=== PATIENT | male | born 1950 | race Caucasian/White ===

== ENCOUNTER 2017-04-02 17:25 | Inpatient (IN) | payer OTHER ==
[2017-04-02] MEDS ORDERED: NS 1,000 ML IV ONE (17:53)
--- NOTE | 2017-04-02 17:54 | EDPHY ---
H & P Stated Complaint: bradycardia/slurring words - Personal History Current Tetanus/Diphtheria Vaccine: Yes - Medical/Surgical History Hx Asthma: No Hx Chronic Respiratory Disease: No Hx Diabetes: No Hx Cardiac Disease: No Hx Renal Disease: No Hx Cirrhosis: No Hx Alcoholism: No Hx HIV/AIDS: No Hx Splenectomy or Spleen Trauma: No Other PMH: denies - Social History Smoking Status: Current every day smoker Constitutional: Initial Vital Signs Heart Rate 24 L 04/02/17 17:36 Respiratory Rate 16 04/02/17 17:36 Blood Pressure 122/78 H 04/02/17 17:36 O2 Sat (%) 98 04/02/17 17:36 O2 Delivery Mode Nasal Cannula O2 (L/minute) 2 Allergies/Adverse Reactions: No Known Allergies Allergy (Verified 04/02/17 17:36) Home Medications: Medication Instructions Recorded NK [No Known Home Meds] 04/02/17 Medical Decision Making ED Course/Re-evaluation: CHIEF COMPLAINT: Vertigo, slurred speech HISTORY OF PRESENT ILLNESS: This patient is a healthy 66 y/o male arriving with family presenting following an episode of vertigo, headache, and slurred speech. Earlier today, he was riding his bike, and developed a strange sensation in his ear. He began to feel unstable and lose his balance, so he stopped riding and walked his bike to a place where a family member could pick him up. When he called his family member , she states it sounded like he was slurring his words. He felt nauseous, but vomited prior to arrival and feels better. Currently, his symptoms are mostly resolved. He was very bradycardic at triage at around 30bpm. He denies headache , chest pain, shortness of breath, abdominal pain, or other associated symptoms. He denies history of cardiac disease. No hypertension or hyperlipidemia. REVIEW OF SYSTEMS: A 10 point review of systems was performed and is negative with the exception of the elements mentioned in the history of present illness. PHYSICAL EXAM: General Appearance: Alert, well hydrated, appropriate, and non-toxic appearing. Head: Atraumatic without scalp tenderness or obvious injury Eyes: Pupils equal, round, reactive to light and accommodation, EOMI, no trauma , no injection. Ears: Clear bilaterally, no perforation, normal landmarks Nose: Atraumatic, no rhinorrhea, clear. Throat: There is no erythema or exudates, no lesions, normal tonsils, mucus membranes moist. Neck: Supple, 2+ carotid upstroke, non-tender, no lymphadenopathy. Respiratory: No retractions, no distress, no wheezes, and no accessory muscle use. Lungs are clear to auscultation bilaterally. Cardiovascular: Bradycardic, no murmurs, rubs, or gallops. Bilateral carotid, radial, dorsalis pedis, and posterior tibial pulses intact. Good capillary refill all extremities. Gastrointestinal: Abdomen is soft, non-tender, non-distended, no masses, no rebound, no guarding, no peritoneal signs. Musculoskeletal: Normal active ROM of all extremities, atraumatic. Neurological: Alert, appropriate, and interactive. The patient has normal DTRs and non-focal cranial nerves, motor, sensory, and cerebellar exam. Skin: No rashes, good turgor, no nodules on palpation. PAST MEDICAL HISTORY: Denies PAST SURGICAL HISTORY: Noncontributory SOCIAL HISTORY: . Family at bedside. Lives in [place]. PCP Dr. Delgado DIAGNOSTICS/PROCEDURES/CRITICAL CARE TIME: The 12 lead EKG was interpreted by myself. See hard copy and/or "tracemaster" electronic copy for interpretation. Sinus bradycardia, occasional ventricular escape beats. DIFFERENTIAL DIAGNOSIS: The differential diagnosis for the patient's dizziness included but was not limited to peripheral and central causes of vertigo, orthostatic causes including dehydration, cardiogenic and neurogenic causes, and blood loss. Differential diagnosis for the patient's bradycardia includes but is not limited to sick sinus syndrome, medication side effect, acute myocardial infarction, vasovagal response, increased intracranial pressure. MEDICAL DECISION MAKIN:45 Assessed patient on arrival. He is bradycardic, heart rate 36 bpm. He will be transferred to a trauma bay for acute care options. Pacer pads placed. The patient is feeling well at this time, and his dizziness is resolved. He is speaking normally. He is alert, neurologically intact. Exam unremarkable other than his bradycardia. Vitals otherwise stable, BP 122/78, RR 24. Plan for labs including CBC, BMP, Troponin, BNP, D-Dimer, PTPTT, an Magnesium. 17:[address] Caceres, senior cyber security analyst. He will evaluate the patient. IV established. Administered 1L IV NS. Plan to administer 1mg IV Atropine for heart rate increase. 18:06 Following Atropine administration, heart rate has increased to 61, sinus rhythm. 18:40 Dr. Caceres will admit the patient for near syncope and bradycardia and perform further cardiac workup. - Data Points Laboratory Results: Laboratory Results 04/02/17 17:40 04/02/17 17:40 04/02/17 04/02/17 04/02/17 17:50 17:40 17:40 WBC RBC Hgb Hct MCV MCH MCHC RDW Plt Count MPV Neut % (Auto) Lymph % (Auto) Desha % (Auto) Eos % (Auto) Baso % (Auto) Nucleat RBC Rel Count Absolute Neuts (auto) Absolute Lymphs (auto) Absolute Monos (auto) Absolute Eos (auto) Absolute Basos (auto) Absolute Nucleated RBC Immature Gran % Immature Gran # PT 13.2 SEC SEC (12.0-15.0) INR 1.01 (0.83-1.16) APTT 24.8 SEC SEC (23.0-38.0) D-Dimer 0.29 ug/mLFEU ug/mLFEU (0.00-0.50) Sodium 138 mEq/L mEq/L (134-144) Potassium 4.0 mEq/L mEq/L (3.5-5.2) Chloride 101 mEq/L mEq/L (97-110) Carbon Dioxide 24 mEq/l mEq/l (22-31) Anion Gap 13 mEq/L mEq/L (8-16) BUN 17 mg/dL mg/dL (7-23) Creatinine 0.9 mg/dL mg/dL (0.7-1.3) Estimated GFR > 60 Glucose 101 mg/dL H mg/dL (70-100) Calcium 9.7 mg/dL mg/dL (8.5-10.4) Magnesium 2.0 mg/dL mg/dL (1.6-2.3) CK-MB (CK-2) Fraction 2.31 ng/mL ng/mL (0.00-3.19) Troponin I Cancelled < 0.012 ng/mL ng/mL (0.000-0.034) NT-Pro-B Natriuret Pep 800 pg/mL H pg/mL (0-125) 04/02/17 17:40 WBC 5.80 10^3/uL 10^3/uL (3.80-9.50) RBC 4.78 10^6/uL 10^6/uL (4.40-6.38) Hgb 15.6 g/dL g/dL (13.7-17.5) Hct 44.0 % % (40.0-51.0) MCV 92.1 fL fL (81.5-99.8) MCH 32.6 pg pg (27.9-34.1) MCHC 35.5 g/dL g/dL (32.4-36.7) RDW 12.4 % % (11.5-15.2) Plt Count 187 10^3/uL 10^3/uL (150-400) MPV 10.3 fL fL (8.7-11.7) Neut % (Auto) 58.5 % % (39.3-74.2) Lymph % (Auto) 31.2 % % (15.0-45.0) Desha % (Auto) 8.1 % % (4.5-13.0) Eos % (Auto) 1.0 % % (0.6-7.6) Baso % (Auto) 0.9 % % (0.3-1.7) Nucleat RBC Rel Count 0.0 % % (0.0-0.2) Absolute Neuts (auto) 3.39 10^3/uL 10^3/uL (1.70-6.50) Absolute Lymphs (auto) 1.81 10^3/uL 10^3/uL (1.00-3.00) Absolute Monos (auto) 0.47 10^3/uL 10^3/uL (0.30-0.80) Absolute Eos (auto) 0.06 10^3/uL 10^3/uL (0.03-0.40) Absolute Basos (auto) 0.05 10^3/uL 10^3/uL (0.02-0.10) Absolute Nucleated RBC 0.00 10^3/uL 10^3/uL (0-0.01) Immature Gran % 0.3 % % (0.0-1.1) Immature Gran # 0.02 10^3/uL 10^3/uL (0.00-0.10) PT INR APTT D-Dimer Sodium Potassium Chloride Carbon Dioxide Anion Gap BUN Creatinine Estimated GFR Glucose Calcium Magnesium CK-MB (CK-2) Fraction Troponin I NT-Pro-B Natriuret Pep Medications Given: Discontinued Medications Atropine Sulfate (Atropine 1 Mg/10 Ml Syringe) 1 mg IVP EDNOW ONE Stop: 04/02/17 18:07 Last Admin: 04/02/17 18:09 Dose: 1 mg Sodium Chloride (Ns) 1,000 mls @ 0 mls/hr IV EDNOW ONE; Wide Open PRN Reason: Protocol Stop: 04/02/17 17:54 Last Admin: 04/02/17 18:05 Dose: 1,000 mls Departure - Departure Disposition: [facility] Inpatient Acute Clinical Impression: Near syncope, Bradycardia Condition: Good Report Scribed for: Urban Lange Report Scribed by: Hattie Larson Date of Report: 04/02/17 Time of Report: 17:49
--- NOTE | 2017-04-02 17:55 | CPEKG ---
Heart Rate: 62 RR Interval: 968 P-R Interval: 176 QRSD Interval: 108 QT Interval: 352 QTC Interval: 358 P [place]: 83 QRS [place]: -18 T Wave [place]: -83 EKG Severity - ABNORMAL ECG - EKG Impression: SINUS RHYTHM EKG Impression: VENTRICULAR BIGEMINY EKG Impression: NONSPECIFIC T ABNORMALITIES, DIFFUSE LEADS Electronically Signed By: Urban Lange 02-Apr-2017 20:23:32
[2017-04-02] MEDS ORDERED: ATROPINE SULFATE 1 MG/10 ML SYR ONE (18:03)
[2017-04-02] MEDS ORDERED: ATROPINE SULFATE 1 MG/10 ML SYR IVP ONE (18:06)
[2017-04-02 18:13] LABS: % IMMATURE GRANULYOCYTES 0.3 % (0.0-1.1); ABSOLUTE IMMATURE GRANULOCYTES 0.02 10^3/uL (0.00-0.10); ADD DIFF? NO; ADD MORPH? NO; ADD SCAN? NO; ATYPICAL LYMPHOCYTE FLAG 10 (0-99); FRAGMENT RBC FLAG 0 (0-99); HEMOGLOBIN 15.6 g/dL (13.7-17.5); LEFT SHIFT FLG 0 (0-99); LIPEMIA HEMOLYSIS FLAG 90 (0-99); MEAN CELL HEMOGLOBIN 32.6 pg (27.9-34.1); MEAN CELL HEMOGLOBIN CONCENTR. 35.5 g/dL (32.4-36.7); MEAN CELL VOLUME 92.1 fL (81.5-99.8); MEAN PLATELET VOLUME 10.3 fL (8.7-11.7); PLATELET CLUMPS FLAG 0 (0-99); PLATELET COUNT 187 10^3/uL (150-400); RED BLOOD CELL COUNT 4.78 10^6/uL (4.40-6.38); RED CELL DISTRIBUTION WIDTH 12.4 % (11.5-15.2)
[2017-04-02 18:22] LABS: INR 1.01 (0.83-1.16); PROTIME(PATIENT) 13.2 SEC (12.0-15.0)
[2017-04-02 18:23] LABS: APTT 24.8 SEC (23.0-38.0)
[2017-04-02 18:32] LABS: ANION GAP 13 mEq/L (8-16); CALCIUM 9.7 mg/dL (8.5-10.4); CARBON DIOXIDE 24 mEq/l (22-31); CHLORIDE 101 mEq/L (97-110); CREATININE 0.9 mg/dL (0.7-1.3); GLOMERULAR FILTRATION RATE > 60; GLUCOSE 101 mg/dL (70-100); SODIUM 138 mEq/L (134-144)
[2017-04-02 18:44] LABS: TROPONIN I < 0.012 ng/mL (0.000-0.034)
[2017-04-02] MEDS ORDERED: NS 1,000 ML IV SCH (19:30)
[2017-04-02] MEDS ORDERED: ACETAMINOPHEN 325 MG TAB PO PRN (19:36)
[2017-04-02] MEDS ORDERED: GADOBUTROL 10 ML VIAL IVP ONE (20:07)
--- NOTE | 2017-04-02 22:15 | GCON ---
[f rep st] CONSULTATION DATE OF CONSULTATION: 04/02/2017 REASON FOR CONSULTATION: I was asked by Dr. Caceres to see this patient in regard to his acute stroke. HISTORY OF PRESENT ILLNESS: This is a 66-year-old man, who presented to the emergency department wit h bradycardia, heart rates in the 20s. 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 His heart rate is typically 35-45 when he is resting per his report . He was seen and admitted by Dr. Caceres from the emergency department. He received atropine with imp rovement of his heart rate up to the 50s to 60s. He had reported to Dr. Caceres, starting at 4:30 p.m. he had some mild problems forming words as well as feeling slightly off balance and leaning to the le ft. Because of this, Dr. Caceres ordered an MRI of his brain. The report of the MRI of the brain was c alled to Dr. Caceres with an acute left-sided cerebellar infarct. Dr. Caceres called me just after 9:00 p. m. with this information. I called a stroke alert and went up to see him. He repeated a similar his tory to me. PAST MEDICAL/SURGICAL HISTORY: None. MEDICATIONS: None. ALLERGIES: No known drug allergies. FAMILY HISTORY: No stroke. SOCIAL HISTORY: Does not drink or smoke. 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 REVIEW OF SYSTEMS: A 10-point review of systems is conducted and is negative except per HPI. PHYSICAL EXAM: VITAL SIGNS: Blood pressure 125/68, heart rate 57, respiration rate 16, saturating 9 4% on room air. Temperature is 36.7. GENERAL: The patient is a very pleasant man who is resting co mfortably, in no acute distress. HEENT: Shows him to be normocephalic atraumatic. CARDIOVASCULAR: Shows a regular rate and rhythm. No murmurs, rubs, or gallops. PULMONARY: Lungs clear to ausculta tion bilaterally. ABDOMEN: Soft, nontender, nondistended. SKIN: No rash. : Shows no Harrell. N EUROLOGIC: Shows him to be alert and oriented x3. Cranial nerves 2-12 are intact. He has some mild dysarthria. Motor is intact and symmetric in the upper and lower extremities. Sensation to light t ouch is intact in the upper and lower extremities. He has diminished left-sided cerebellar findings including finger tapping, egspyg-wb-baxy and sakk-[id number]-[id number] compared to his right. PSYCHIATRIC: Shows normal mood and affect. LABS: CBC is normal. INR is normal. BNP is 800. Troponin is negative. Glucose is 101. DATA: 1. I discussed this with Dr. Caceres as above. 2. I personally viewed and interpreted his EKG. This shows ventricular bigeminy. There are no acut e ischemic changes. 3. I spoke with neurologist Dr. Hernández on the phone. IMPRESSION AND PLAN: 1. Acute cerebrovascular accident: Unfortunately he was out of the window by the time his stroke wa s truly discovered. He does have mild findings. Had an NIH stroke score of 0. I did discuss this w ith Dr. Hernández, who agreed that there was no indication for tPA given the time frame. He will be nenita ated with aspirin. Lipids will be checked. CT angio of his head and neck will be checked. Echocard iogram will be checked. He will be monitored on telemetry and seen by Neurology tomorrow. 2. Bradycardia: I wonder if a central neurologic issues did not triggered this episode of bradycard ia. It sounds as though given his level of fitness that he is relatively bradycardic at baseline. H e is improved with atropine. He will be followed by Dr. Caceres for this. /[id number]/MODL
[2017-04-02] MEDS ORDERED: IOPAMIDOL (ISOVUE 370) 100 ML BTL IV ONE (22:16)
[2017-04-02 23:43] LABS: CREATINE KINASE-MB FRACTION 1.27 ng/mL (0.00-3.19); TROPONIN I 0.013 ng/mL (0.000-0.034)
[2017-04-03 02:16] LABS: CREATINE KINASE-MB FRACTION 1.22 ng/mL (0.00-3.19); TROPONIN I 0.017 ng/mL (0.000-0.034)
[2017-04-03 04:51] LABS: % IMMATURE GRANULYOCYTES 0.3 % (0.0-1.1); ABSOLUTE IMMATURE GRANULOCYTES 0.02 10^3/uL (0.00-0.10); ADD DIFF? NO; ADD MORPH? NO; ADD SCAN? NO; ATYPICAL LYMPHOCYTE FLAG 0 (0-99); FRAGMENT RBC FLAG 0 (0-99); HEMATOCRIT 39.8 % (40.0-51.0); HEMOGLOBIN 14.4 g/dL (13.7-17.5); LEFT SHIFT FLG 0 (0-99); LIPEMIA HEMOLYSIS FLAG 90 (0-99); MEAN CELL HEMOGLOBIN 32.8 pg (27.9-34.1); MEAN CELL HEMOGLOBIN CONCENTR. 36.2 g/dL (32.4-36.7); MEAN CELL VOLUME 90.7 fL (81.5-99.8); PLATELET CLUMPS FLAG 0 (0-99); PLATELET COUNT 176 10^3/uL (150-400); RED BLOOD CELL COUNT 4.39 10^6/uL (4.40-6.38); RED CELL DISTRIBUTION WIDTH 12.5 % (11.5-15.2)
[2017-04-03 05:02] LABS: ALANINE AMINOTRANSFERASE 34 IU/L (21-72); ALBUMIN 3.4 g/dL (3.5-5.0); ALKALINE PHOSPHATASE 58 IU/L (38-126); ANION GAP 9 mEq/L (8-16); ASPARTATE AMINOTRANSFERASE 19 IU/L (17-59); BILIRUBIN,TOTAL 0.8 mg/dL (0.1-1.4); CARBON DIOXIDE 23 mEq/l (22-31); CHLORIDE 108 mEq/L (97-110); CHOLESTEROL 118 mg/dL (140-220); CHOLESTEROL/HDL RATIO 2.46 RATIO (1.00-4.97); CREATININE 0.9 mg/dL (0.7-1.3); GLOMERULAR FILTRATION RATE > 60; GLUCOSE 92 mg/dL (70-100); HIGH DENSITY LIPOPROTEIN 48 mg/dL (40-65); LDL/HDL RATIO 1.23 RATIO (1.00-3.64); LOW DENSITY LIPOPROTEIN 59 mg/dL (80-100); NON-HIGH DENSITY LIPOPROTEIN 70 mg/dL (90-129); POTASSIUM 4.2 mEq/L (3.5-5.2); SODIUM 140 mEq/L (134-144); TOTAL PROTEIN 5.6 g/dL (6.3-8.2); TRIGLYCERIDE 57 mg/dL (40-150); VERY LOW DENSITY LIPOPROTEINS 11 mg/dL (8-25)
[2017-04-03 05:12] LABS: CREATINE KINASE-MB FRACTION 1.49 ng/mL (0.00-3.19); TROPONIN I 0.021 ng/mL (0.000-0.034)
--- NOTE | 2017-04-03 05:31 | GHP ---
[f rep st] HISTORY AND PHYSICAL DATE OF ADMISSION: 04/02/2017 REFERRING PHYSICIAN: Urban Lange MD INDICATION FOR ADMISSION: Symptomatic bradycardia. HISTORY OF PRESENT ILLNESS: The patient is a pleasant 66-year-old gentleman who is physically active with no significant past medical history, who was in his usual state of health until this afternoon when he was out on a bike ride with a friend of his. He states he was biking gradually down the [place] bike path when he had an acute onset of this sensation over his right inner ear which he describe d as a fullness and had a sudden onset of feeling a loss of equilibrium and dizziness which forced hi m to stop from his bike. He comments that he was listing to the left when trying to walk. He had sl urred speech and could not walk and he became profoundly nauseated and vomited x1 and felt better. Brendan musa was brought to [facility] by his biking naval architect where he was found to be in a sin us bradycardia in the 20s upon arrival. He was given IV fluid on a milligram of IV atropine which bauer s normalized his heart rate to sinus bradycardia ranging from approximately 45-65 beats per minute du ring my examination. Of note, during my exam he continues to have difficulty with speech. He responds appropriately. His neurologic exam is unremarkable with the exception of having difficulties with speech. He responds appropriately to questions. He has no past medical history of any significance. He is not on any medications. He states he has not been ill recently. He has been eating and drinking normally. 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 At the time of my exam, he denies complaints of dizziness, lightheadedness, near syncope, or syncope. He has no complaints of chest pain, chest pressure, nausea, vomiting, palpitations. He has no comp laints of PND, orthopnea, or lower extremity edema. He has no complaints of fevers, chills, sweats. He denies any recent viral illness. He has no complaints of abdominal pain, back pain, flank pain. No complaints of a tearing chest pain, midscapular pain, jaw pain. He has no neurologic symptoms. He denies focal numbness or weakness. He has no visual field loss. PAST MEDICAL HISTORY: None. PAST SURGICAL HISTORY: None. MEDICATIONS ON ADMISSION: None. ALLERGIES TO MEDICATIONS: None. FAMILY HISTORY: No family history of premature coronary artery disease or arrhythmias. He has siste rs who are alive and well with no cardiac issues. SOCIAL HISTORY: He grew up in [place], currently lives here in [place]. 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 He is . He is lifelong nonsmoker. He does not drink alcohol. He has not used illicit drugs. He has not used marijuana. He cycles 250 miles a week on his road bike and races competitively. PHYSICAL EXAMINATION: VITAL SIGNS: Blood pressure 147/85, heart rate is 50 and is sinus bradycardia , respiratory rate of 14, oxygen saturation 99% on 2 L nasal cannula. GENERAL: He is awake, alert, oriented, appropriate and responds to questions appropriately. NECK: There is no evidence of JVP or carotid bruits. LUNGS: Clear to auscultation bilaterally. CARDIAC: S1, S2. Regular rate and rhy thm. No murmurs, rubs, or gallops but marked bradycardia with an occasional premature beat. ABDOMEN : Soft, nontender, nondistended. There is no pulsatile mass or abdominal bruit. His abdomen has no rmal bowel sounds. EXTREMITIES: Distal pulses are intact. There is no evidence of cyanosis, clubbi ng or edema. NEUROLOGIC: Unremarkable. Cranial nerves are intact. No focal weakness or deficits. DATA: ECG on presentation today demonstrates sinus rhythm with ventricular bigeminy at a rate of 62 beats per minute. Normal intervals. Normal axis. Poor R-wave progression. Previous ECG from November 2009 demonstrates sinus bradycardia at 45 beats per minute. Please note resting heart rate is typica lly in the 40s for this patient. DATA: Labs: White blood cell count 5.8, hemoglobin 15.6, hematocrit of 44, platelets 187. Sodium 1 38, potassium 4.0, chloride 101, bicarb 24, BUN 17, creatinine 0.9, calcium 9.7, magnesium 2. Tropon in less than 0.012. N-terminal proBNP 800. Full telemetry demonstrates sinus bradycardia, currently with rates in the mid 40s to mid 50s with in termittent premature atrial contractions and premature ventricular contractions. IMPRESSION: 1. Symptomatic bradycardia on admission. 2. Onset triggered by fullness in right side of the head with listing to the left and ongoing diffic ulty with speech. 3. Known history of sinus bradycardia with resting heart rates typically in the 40s as noted on prev ious ECG From November 2009. PLAN: 1. MRI of the brain. 2. Complete 2D echocardiogram to be performed in the morning. 3. Serial cardiac enzymes x3. 4. Serial ECGs. 5. Admit to telemetry floor for close monitoring. 6. No indication for temporary or permanent pacemaker at this time. 7. Would recommend patient have pacer pads remain on throughout the course of the evening. 8. N.p.o. until further notice. Over an hour and a half were spent coordinating care for this patient. /[id number]/MODL
[2017-04-03 07:49] VITALS: O2SAT 95
[2017-04-03] MEDS ORDERED: ASPIRIN 81 MG CHEWABLE TAB PO SCH (09:00)
--- NOTE | 2017-04-03 09:11 | CPEKG ---
Heart Rate: 47 RR Interval: 1277 P-R Interval: 168 QRSD Interval: 108 QT Interval: 500 QTC Interval: 442 P [place]: 72 QRS [place]: -17 T Wave [place]: 70 EKG Severity - OTHERWISE NORMAL ECG - EKG Impression: SINUS BRADYCARDIA EKG Impression: MINIMAL ST ELEVATION, ANTERIOR LEADS EKG Impression: PRIOR ECG WITH VENTRICULAR BIGEMINY NOTED (ABSENT IN THIS ECG) Electronically Signed By: Jaleel Jimenez 07-Apr-2017 08:34:52
--- NOTE | 2017-04-03 10:48 | ECHO ---
[email or web address] [address] [address]: [phone] Fax: Transthoracic Echocardiogram Name: BELEN LACKEY MR#: [id number] Study Date: 04/03/2017 Study Time: 08:32 AM Date of : 1950 Age: 66 year(s) Height: 188 cm (74 in.) Weight: 78.93 kg (174 lb.) BSA: 2.05 m2 Gender: Male Examination: Echo Indication: marked bradycardia Image Quality: Adequate Contrast: Requested by: Phillip Caceres BP: 134 mmHg/85 mmHg Heart Rate: Rhythm: Sinus bradycardia Indication: marked bradycardia Procedure Staff Distribution Tech: Yaquelin Treviño Physician: [facility] [place] Requesting Provider: Conclusions: Cardiomegaly with mild to moderately reduced LV systolic function. Ejection fraction 40%. Global hypokinesis. Functional moderate mitral regurgitation. Mild aortic and tricuspid regurgitation. Definity to assess left ventricular apex. Measurements: Chambers Valvular Assessment AV/MV Valvular Assessment TV/PV Normal Normal Normal Name Value Range Name Value Range Name Value Range Ao Ximena (MM): 3.1 cm (2.2 cm-3.7 AV Vmax: 1.42 m/s (1 m/s-1.7 TR Vmax: 2.38 mm/s ( - ) cm) m/s) TR PGmax: 23 mmHg ( - ) IVSd (2D): 1.0 cm (0.6 cm-1.1 AV maxP mmHg ( - ) syst. PAP: 33 mmHg ( - ) cm) MV meanP mmHg ( - ) PV Vmax: 0.63 m/s (0.6 m/s-0.9 LVDd (2D): 6.7 cm (4.2 cm-5.9 MVA (Vmax): 4.2 m/s ( - ) m/s) cm) PV PGmax: 2 mmHg ( - ) LVDs (2D): 5.8 cm (2.1 cm-4 cm) LVPWd (2D): 1.0 cm (0.6 cm-1 cm) LVOTd 2.1 cm 2.1 cm mm LVEF (BP): 38 % (>=55 %) RVDd(2D): 4.5 cm (1.9 cm-3.8 cmmm) Continued Measurements: Chambers Valvular Assessment AV/MV Valvular Assessment TV/PV Name Value Name Value Name Value LADs: 5.2 cm MV Annulus: 4.4 cm CVP (est.): 10 mmHg LADs Lon.5 cm MV VTI: 17.50 cm LA Area: 32.5 cm2 MR Vena Contracta: 0.5 cm Patient: BELEN LACKEY Study Date: 04/03/2017 Page 1 of 2 08:32 AM LA Volume: 132 ml MR ERO: 0.2 cm2 LA Volume Index: 64.4 ml/m2 MR PISA radius: 6 mm TAPSE: 1.8 cm MR Reg. Volume: 36 ml RA Area: 23.2 cm2 MR Reg. Fraction: 14 % Additional Vessels Name Value Ao Ascendin.3 cm Findings: Left Ventricle: Dilated left ventricle. Borderline concentric LV hypertrophy. Mildly to moderately reduced systolic funtion. EF is 38 %. Right Ventricle: Mildly dilated right ventricle. RV function is lower limits of normal. Left Atrium: The left atrium is severely dilated. Right Atrium: The right atrium is moderately dilated. Mitral Valve: There is mild thickening of the mitral valve leaflets. Moderate mitral valve regurgitation is present. Aortic Valve: The aortic valve is tri-leaflet. Trivial aortic valve regurgitation. Tricuspid Valve: The tricuspid valve is normal in appearance and function. Trivial to mild tricuspid valve regurgitation. Borderline elevated pumonary artery pressure. Pulmonic Valve: The pulmonic valve is normal in appearance. Trivial pulmonic valve regurgitation. Aorta: Normal size aortic root measuring 3.1 cm. Normal size ascending aorta measuring 3.3 cm. IVC: The IVC is dilated. There is greater tawny 50% respiratory excursion. Pericardium: No pericardial effusion. (No Signature Object) Patient: BELEN LACKEY Study Date: 04/03/2017 Page 2 of 2 08:32 AM [id number]
--- NOTE | 2017-04-03 11:05 | ASMTCMCOM ---
CM Note CM Note Notes: Patient admitted after CVA and severe bradycardia. He is neurologically intact and has no deficits. PT has cleared for home. No d.c needs anticipated. CM available for any changes. Date Signed: 04/03/2017 11:05 AM Electronically Signed By:Lisbeth Dumont RN
[2017-04-03 11:42] LABS: HEMOGLOBIN A1C 5.3 % (4.0-6.0)
[2017-04-03 11:53] VITALS: BP 131/85; PULSE 45; RESP 16; TEMP 98.9
--- NOTE | 2017-04-03 12:55 | NEUROPROG ---
Assessment: [id number] CC: Dr. Torre consulted neurology for stroke. Results placed in the EMR for his review. 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 He was admitted by cardiology and his bradycardia improved with atropine. He also reported at 4:30 pm he developed mild word forming problems and the feeling of leaning to the left. A brain MRI showed a left cerebellar stroke. A stroke alert was called but as stroke was discovered > 4.5 hours after symptom onset he was not felt to be a TPA candidate. CTA head/neck showed no significant findings. I initially saw him on 04/03/17. His NIH SS was 0. His TTE was abnormal (results below) so it seems this is the most likely cause of his stroke. PMHx: none Home Meds: none SHx: no tobacco, avid cyclist FHx: no stroke ROS: Pt denied acute fever, total vision loss, active severe chest pain, respiratory failure, total body severe rash, total bowel/bladder incontinence, psychosis, active seizures, or active bleeding O: VS reviewed General: Alert Eyes: Fundoscopic exam not able to visualize optic disks CV: Heart RRR, no murmur, no carotid bruit Lungs: Clear to auscultation bilaterally, no rhonci or rales Neuro: - Mental: . Oriented x person/place/date . concentration appears normal . speech fluency/comprehension normal . memory appears normal . fund of knowledge appear intact - Cranial Nerves: . II: PERRL, VFFTC . III/IV/: EOMI, no nystagmus, normal smooth pursuits, no Ptosis . V: facial sensation intact to LT . VII: face symmetric to eye closure and smile . VIII: hearing intact to conversation . IX/X: uvula raises symmetrically . XI: SCM 5/5 B/L strength . XII: tongue protrudes midline w/nl strength - Motor: . Tone: normal tone in all 4 extrem . Strength: no pronator drift, strength 5/5 throughout (B/L delt, bic, tri, hand lump maker, hf/he, df/pf) - Reflexes: B/L bic/BR/patella 2/4 - Sensory: all 4 extrem intact to light touch - Coord: oetomu-rj-fvuz wnl, IMTIAZ wnl, gblr-ag-fbtf wnl - Gait: deferred - NIH SS 0 Labs: 04/03/17- LDL 59L Rads: 04/02/17- Brain MRI w/o con: acute stroke in left superior cerebellum, parafalcine hyperintensity in frontal lobes b/l on DWI w/o correlating hypointensity on ADC may be artifactual (I personally visualized the images on 04/03/17) 04/02/17- CTA head/neck: no cervical or intracranial vascular abnormalities 04/03/17- TTE: cardiomegaly w/mild reduced LV systolic function, EF 40%, global hypokinesis, mod MR Assessment: 1. Cardioembolic Left Superior Cerebellar stroke: Symptoms resolved with NIH SS 0 on 04/03/17. Likely mechanism is cardioembolic given unremarkable CTA head/ neck and low LDL coupled with abnormal echocardiogram. UpToDate recommends treating patients with heart failure with reduced ejection fraction in sinus rhythm with prior thromboembolic events (stroke in this case) with warfarin versus no anticoagulant. Therefore, I would recommend coumadin for future stroke prevention if cardiology and hospitalist service agree. 2. Heart failure in sinus rhythm with reduced ejection fracture: managed by cardiology Plan: - 24 hour telemetry to exclude afib - Speech/PT/OT consult - BP < 220/120 x 48 hours then < 140/90 technician terminal and repeater - LDL goal < 70 (59) - H1AC goal < 7.0 (H1AC pending) - Recommend changing aspirin to coumadin for stroke prevention if cardiology and hospitalist agree (recommendations may change based on further cardiac diagnostic studies) - Cardiology to perform further cardiac evaluations to assess for cardiac thrombus - F/U in neurology clinic 1-3 weeks after hospital discharge Objective: Vital Signs Temp Pulse Resp BP Pulse Ox 37.2 C 45 L 16 131/85 H 95 04/03/17 11:51 04/03/17 11:51 04/03/17 11:51 04/03/17 11:51 04/03/17 11:51 Laboratory Results 04/03/17 04:29 04/03/17 04:29 04/02/17 04/03/17 04/04/17 05:59 05:59 05:59 Intake Total 1300 Balance 1300 PT 13.2 SEC (12.0-15.0) 04/02/17 17:40 INR 1.01 (0.83-1.16) 04/02/17 17:40 Allergies/Adverse Reactions: No Known Allergies Allergy (Verified 04/02/17 17:36)
[2017-04-03] MEDS ORDERED: PERFLUTREN LIPID MICROSPHERES 1.1 MG/ML VIAL IV ONE (13:45)
--- NOTE | 2017-04-03 14:32 | ECHO ---
[email or web address] [address] [address] Main: [phone] Fax: Transthoracic Echocardiogram Name: BELEN LACKEY MR#: [id number] Study Date: 04/03/2017 Study Time: 01:54 PM Date of : 1950 Age: 66 year(s) Height: 188 cm (74 in.) Weight: 79.38 kg (175 lb.) BSA: 2.05 m2 Gender: Male Examination: Limited Echo Indication: limited F/U echo with definity to rule out apical thrombus Image Quality: Contrast: 0.330 mg I.V. dose of Definity was administered to improve endocardial border definition. Requested by: Phillip Caceres BP: 131 mmHg/85 mmHg Heart Rate: Rhythm: Normal sinus rhythm Indication: limited F/U echo with definity to rule out apical thrombus Procedure Staff Finishing Tunnel Operator: Yaquelin Cruz Reading Physician: [place] Requesting Provider: Conclusions: Reduced left ventricular systolic function with LV dilatation. Normal tissue Doppler without evidence of restrictive cardiomyopathy. No apical thrombus. Measurements: Chambers Valvular Assessment AV/MV Valvular Assessment TV/PV Normal Normal Normal Name Value Range Name Value Range Name Value Range Visual EF: 45 % MV E Vmax: 0.67 m/s ( - ) TR Vmax: 3.03 mm/s ( - ) MV A Vmax: 0.51 m/s ( - ) TR PGmax: 37 mmHg ( - ) MV E/A: 1.31 ( - ) Continued Measurements: Valvular Assessment AV/MV Name Value MV E' Septal: 0.05 m/s MV E/E' Septal: 12.50 MV E/E' Lateral: 10.80 Findings: Left Ventricle: Dilated left ventricle. The ejection fraction is visually estimated to be 45 %. No thrombus in left ventricle. Patient: BELEN LACKEY Study Date: 04/03/2017 Page 1 of 2 01:54 PM (No Signature Object) Patient: BELEN LACKEY Study Date: 04/03/2017 Page 2 of 2 01:54 PM [id number]
--- NOTE | 2017-04-03 15:55 | PDCARPN ---
Cardiology Progress Note Chief Complaint: Slurred speech. Assessment/Plan: Assessment: 1. Left cerebellar infarct 2. Dilated cardiomyopathy 3. LVEF 40-45% 4. Sinus bradycardia 5. Ventricular Bigeminy Plan: -aspirin 81 mg daily -Holter monitor as out pt. Followed by [facility] or [employer] [facility] -Out patient Left and right heart catheterization -if cardiac catheterization is unremarkable, will plan on cardiac MRI -Recommend patient obtain second opinion. Provided names of other local providers 04/03/17 15:51 Subjective: 66 year old gentleman presented yesterday with acute onset of headache and slurred speech and marked bradycardia on presentation to the ER. Recieved 1 mg atropine and returned to baseline sinus marilou in the 40's. MRI of brain demonstrated Left cerebellar infarct. Echo today demonstrated dilated cardiomyopathy with LVIDd of 6.7 cm with LVEF 40-45. BNP 800. Definity did not demonstrate LV thrombus. He remains in sinus marilou with occaisional PVC's and bigeminy. His speech has normalized. He has no complaints. Reviewed/Discussed With: family, hospitalist, multidisciplinary team Time Spent With Patient: 60 minutes total today. Objective: Vital Signs (8 Hrs) Temp Pulse Resp BP Pulse Ox 04/03/17 11:51 37.2 C 45 L 16 131/85 H 95 04/03/17 10:45 75 131/85 H 95 Intake/Output (24 Hrs) 04/02/17 04/03/17 04/04/17 05:59 05:59 05:59 Intake Total 1300 Balance 1300 Intake: Oral (ml) 300 IV Infused (ml) 1000 Other: Weight 78.925 kg Intake Quantity Yes Sufficient Number of Voids Toilet 1 Result Diagrams: 04/03/17 04:29 04/03/17 04:29 Cardiac Labs: Cardiac Lab Results (72 Hrs) 04/03/17 04/03/17 04/03/17 04:29 04:29 01:45 CK-MB (CK-2) Fraction Cancelled 1.49 1.22 Troponin I Cancelled 0.021 0.017 04/02/17 23:02 CK-MB (CK-2) Fraction 1.27 Troponin I 0.013 ICD10 Worksheet Patient Problems: Problems Problem Status Onset Bradycardia Acute Near syncope Acute
--- NOTE | 2017-04-03 16:18 | HOSPPROG ---
Hospitalist Progress Note Assessment/Plan: Cerebellar CVA - suspect embolic. Appreciate neurology consult. Case discussed with Dr. Rao and Dr. Caceres. Cont daily ASA. LDL 59. Neuro does not recommend statin therapy. Echo per cards is negative for LV thrombus. No e/o A fib on tele. He should have outpt cardiac event monitor. Systolic dysfunction - EF 40% with mod MR. Needs further w/u including left and right heart cath, which will be performed as outpt per Dr. Caceres. Will likely need LUCY at some point, not a candidate for BB with bradycardia Sinus bradycardia - baseline HR 40's, received atropine upon arrival to ED with HR in the 30's and symptoms. As above, recommend outpt cardiac event monitor. MR - management per cards. Full code Dispo - obs, will dc tonight per cards attending. Subjective: Pt feels better. No more speech problems. No dizziness or vision changes. No problems with ambulation. No CP or SOB. Wants to go home. Objective: Vital Signs Temp Pulse Resp BP Pulse Ox 37.2 C 45 L 16 131/85 H 95 04/03/17 11:51 04/03/17 11:51 04/03/17 11:51 04/03/17 11:51 04/03/17 11:51 Laboratory Results 04/03/17 04:29 04/03/17 04:29 04/02/17 04/03/17 04/04/17 05:59 05:59 05:59 Intake Total 1300 Balance 1300 PT 13.2 SEC (12.0-15.0) 04/02/17 17:40 INR 1.01 (0.83-1.16) 04/02/17 17:40 - Physical Exam Constitutional: no apparent distress Eyes: PERRL Ears, Nose, Mouth, Throat: moist mucous membranes Cardiovascular: bradycardia Respiratory: no respiratory distress, clear to auscultation Gastrointestinal: normoactive bowel sounds, soft, non-tender abdomen Skin: warm Musculoskeletal: full muscle strength Neurologic: AAOx3 Psychiatric: interacting appropriately ICD10 Worksheet Patient Problems: Problems Problem Status Onset Bradycardia Acute Near syncope Acute
--- NOTE | 2017-04-03 16:38 | GDS ---
[f rep st] DISCHARGE SUMMARY INDICATION FOR ADMISSION: Acute onset of headache, slurred speech, and found to have marked bradycardia in the 20s. HOSPITAL COURSE: The patient presented to [facility] emergency department, transported to the hospital by a friend whom he was cycling with. He had been cycling yesterday afternoon when he had an acute onset of right- sided head pain, prompting him to get off his bike. He had slurred speech and what his friend and witness described as listing to the left. He was brought to the emergency room. He was found to be markedly bradycardic with heart rates in the 20s. He received atropine 1 mg IV, with return to his baseline sinus bradycardia in the 40s. 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 This was documented also on ECG in November of 1999 here at [facility]. He did have runs of ventricular bigeminy with rates in the 40s. At the time of my examination in the ER last night, he was hemodynamically stable but had residual slurred speech prompting stat MRI of the brain with and without contrast, demonstrating a left superior cerebellar infarct. Stroke team was consulted, who felt that he was beyond window of tPA and was treated with aspirin. He was seen in consultation by Dr. Rao of Neurology. The etiology of his stroke was thought to be cardioembolic. He was started on aspirin 81 mg daily. Complete 2D echocardiogram was performed, demonstrating a dilated cardiomyopathy with LVEF of 40% to 45%. There was concern of possible LV apical thrombus and subsequent Definity contrast study was performed demonstrating no evidence of apical thrombus. In the absence of thrombus with LVEF of 40% to 45%, I elected to place him on aspirin and not long -term anticoagulation at this time. I reviewed the findings of his echocardiogram, his MRI and his workup to date with the patient and family at great length today. I have recommended further cardiac workup including diagnostic left and right heart catheterization and long-term monitoring for possibly underlying atrial fibrillation in the setting of a new stroke, thought to be cardioembolic, of no clear underlying etiology. After discussing this in detail with the patient and his , he will plan to go home today and consider his options further. DISCHARGE MEDICATIONS: Aspirin 81 mg daily. PLAN: 1. Patient will be discharged home after 6 p.m. 2. Patient will follow up with Dr. Rao in the neurology clinic in 1-2 weeks. 3. Patient will present to my office on Saturday for Holter monitor. I initially planned on ZIO Patch, but [employer]. It does not cover ZIO Patch monitors without prior Holter monitor. 4. Would consider [employer] implantable loop recorder if ZIO Patch or Holter monitor were unremarkable. 5. Recommend outpatient left and right heart catheterization. 6. If left heart catheterization is unremarkable, would recommend cardiac MRI. 7. Recommend patient seek second opinion. His had numerous questions and felt that he did not require some of the testing I had recommended. I recommended names of other physicians, cardiologists in the area to obtain further opinions. 45 minutes spent coordinating care. /[id number]/MODL MTDSushant
--- NOTE | 2017-04-04 14:43 | ASDISCHSUM ---
Discharge Information Plan Status:Home with No Needs Medically Cleared to Leave: Discharge Date:04/03/2017 06:00 PM CM D/C Disposition:Home, Routine, Self-Care ADT D/C Disposition:Home, Routine, Self-Care Projected Discharge Date:04/03/2017 06:00 PM Transportation at D/C:Friend Discharge Delay Reason: Follow-Up Date:04/03/2017 06:00 PM Discharge Slot: Final Diagnosis: Placement Information Patient Contact Information Contact Name:CLAIR Relationship: Address:[address] Work Phone: City:[facility] Phone: [facility]/Zip Code:[place] [address] Email: Financial Information Financial Class:HMO and PPO Plans Primary Plan Desc:GIO RAFI PPO Primary Plan Number:[id number] Secondary Plan Desc: Secondary Plan Number: Assessment Information [facility] CM Progress Note CM Note CM Note Notes: Patient admitted after CVA and severe bradycardia. He is neurologically intact and has no deficits. PT has cleared for home. No d.c needs anticipated. CM available for any changes. Date Signed: 04/03/2017 11:05 AM Electronically Signed By:Lisbeth Dumont RN Intervention Information
== END 2017-04-03 18:00 | disposition home or self-care (01) | DRG 65 ==
LOC: OBSVTOIN 18:40 → F2W 20:30 → F2N 21:49
PROVIDERS: ADMIT Internal Medicine Cardiovascular Disease; ATTEND Internal Medicine Cardiovascular Disease
DX: I63.9 Cerebral infarction, unspecified (principal); I42.0 Dilated cardiomyopathy; R47.81 Slurred speech; R00.1 Bradycardia, unspecified
CPT/HCPCS: 92523-GN; 96374; 97161-GP; 97166-GO; A9585; C8924; J0461; Q9957; Q9967

== ENCOUNTER 2017-04-30 07:44 | Day surgery (SDC) | payer OTHER ==
[2017-04-30] MEDS ORDERED: ASPIRIN EC 325 MG TAB PO ONE ×2 (07:49→08:10)
[2017-04-30] MEDS ORDERED: NS 1,000 ML IV ONE (07:49)
[2017-04-30] MEDS ORDERED: diphenhydrAMINE 25 MG CAP PO ONE ×2 (07:49→08:10)
[2017-04-30] MEDS ORDERED: DIAZEPAM 5 MG TAB PO ONE (07:49)
[2017-04-30] MEDS ORDERED: FAMOTIDINE 20 MG TAB PO ONE (07:49)
--- NOTE | 2017-04-30 08:06 | CPEKG ---
Heart Rate: 66 RR Interval: 909 P-R Interval: 160 QRSD Interval: 104 QT Interval: 424 QTC Interval: 445 P [place]: 65 QRS [place]: -6 T Wave [place]: 57 EKG Severity - ABNORMAL ECG - EKG Impression: SINUS RHYTHM EKG Impression: VENTRICULAR BIGEMINY EKG Impression: BORDERLINE T ABNORMALITIES, LATERAL LEADS Electronically Signed By: Raji Aden 30-Apr-2017 10:39:55
[2017-04-30] MEDS ORDERED: DIAZEPAM 5 MG TAB ONE (08:10)
[2017-04-30] MEDS ORDERED: FAMOTIDINE 20 MG TAB ONE (08:10)
[2017-04-30] MEDS ORDERED: fentaNYL 100 MCG/2 ML INJ ONE (08:19)
[2017-04-30] MEDS ORDERED: LIDOCAINE 1% 300 MG/30 ML SDV ONE (08:19)
[2017-04-30] MEDS ORDERED: MIDAZOLAM 2 MG/2 ML VIAL ONE (08:19)
[2017-04-30] MEDS ORDERED: IOPAMIDOL (ISOVUE-370) 150 ML BTL IV ONE (08:19)
[2017-04-30 08:23] LABS: PLATELET COUNT 163 10^3/uL (150-400)
--- NOTE | 2017-04-30 08:32 | PDPROPOC ---
Sedation Plan of Care Sedation Plan of Care: mental status noted ASA Classification: ASA 2 Planned drugs: fentanyl, midazolam Mallampati Score: Class 2 Mallampati Reference Image: Patient passed 3-3-2 rule?: Yes
--- NOTE | 2017-04-30 08:32 | PDHPUP ---
History & Physical Update H&P update statement: This history and physical update is based on an assessment of the patient which was completed after admission or registration (within 24 hours), but prior to the surgery/procedure. H&P update: H&P reviewed & patient examined
[2017-04-30 08:37] LABS: INR 1.05 (0.83-1.16); PROTIME(PATIENT) 13.6 SEC (12.0-15.0)
[2017-04-30] MEDS ORDERED: OXYCODONE/APAP 5/325 TAB PO PRN (09:22)
[2017-04-30] MEDS ORDERED: HYDROCODONE/APAP 5/325 TAB PO PRN (09:22)
[2017-04-30] MEDS ORDERED: ATROPINE SULFATE 1 MG/10 ML SYR IVP PRN (09:22)
[2017-04-30] MEDS ORDERED: ONDANSETRON 4 MG/2 ML VIAL IVP PRN (09:22)
[2017-04-30] MEDS ORDERED: NITROGLYCERIN 0.4 MG BTL SL PRN (09:22)
--- NOTE | 2017-04-30 09:58 | CPIP ---
[f rep st] INVASIVE CARDIAC PROCEDURE DATE OF PROCEDURE: 04/30/2017 INDICATION FOR PROCEDURE: Abnormal echocardiogram/stress test. PROCEDURE: 1. Nonselective right coronary sheathogram. 2. Bilateral coronary angiography. 3. Left heart catheterization. 4. Left angiogram. HISTORY: Briefly, this is a 66-year-old male with a history of palpitations, longstanding history PV Cs who had an outside echocardiogram as an outpatient, which showed an EF of 40% to 45%. The patient followed up with us in the office and had an outpatient stress test which was grossly abnormal showi ng an infixed inferior wall defect with an EF of 28%. Given these variable results, we decided to mo ve forward with a left heart catheterization to define the patient's anatomy. DESCRIPTION OF PROCEDURE: After informed consent, the patient was brought to [facility] where the right kristi in was prepped and draped in the usual sterile fashion. Using Lidocaine, a short 6-[place]ay[place] Islander sheath was introduced into the left common femoral artery and verified angiographically. With the 6-[place] Islander she ath, the JR4 catheter was then placed in the left femoral artery. Images left coronary artery reveale d long left main. Left circumflex artery gave off a marginal 1 artery which turned into the AV groov e circ. The distal circ bifurcated into 2 marginal arteries, which were healthy and free of disease. The LAD was a long vessel which wrapped around the apex and gave off a medium to large diagonal art josé luis proximally and the 2nd diagonal artery in its mid body. Of note, the 1st diagonal artery had tub ular 50% to 60% proximal stenosis. Distally, the vessel appeared to be widely patent. After the ty ge was obtained, the JL4 catheter was removed with an 0.035 wire. JR4 catheter was advanced in the r ight coronary artery. Image of the right coronary artery revealed normal os proximal and distal RCA. The RPD and RPLS appeared to be healthy and free of disease. A JR4 catheter was removed. A pigtail catheter was advanced to the left ventricle. EDP is 18 mmHg. Left ventriculogram in the PERLA projection showed an EF of what appeared to be 40% to 45% with infero apical hypokinesis. An MONTENEGRIN ventriculogram was obtained as well which showed apical hypokinesis with the same EF of approximately 40% to 45%. There was no pull-back gradient between the LV and the aort a. Pigtail was removed with an 0.035 wire. Right groin was closed with manual pressure. Patient to lerated the procedure well, with no complications. IMPRESSION: 1. Moderate proximal stenosis of a medium to large diagonal artery approximately 60%. 2. Normal left anterior descending left circumflex and right coronary arteries. 3. Reduced ejection fraction of 40% to 45% with inferolateral apical hypokinesis. PLAN: The patient's myopathy appears to be out of proportion to his coronary artery disease. He has a longstanding history of frequent PVCs, potentially refer for EP study/PVC ablation would be the ne xt logical step if the patient should have any increasing symptoms. If the patient's blood pressure can tolerate it, starting on a low-dose LUCY inhibitor for his myopathy would be suggested as an outpa tient. Beta ravi most likely cannot be initiated at this point, given the patient's baseline hear t rate in the 40s and 50s. /[id number]/MODL
--- NOTE | 2017-04-30 09:58 | CPIP ---
[f rep st] INVASIVE CARDIAC PROCEDURE DATE OF PROCEDURE: 04/30/2017 INDICATION FOR PROCEDURE: Abnormal echocardiogram/stress test. PROCEDURE: 1. Nonselective right coronary sheathogram. 2. Bilateral coronary angiography. 3. Left heart catheterization. 4. Left angiogram. HISTORY: Briefly, this is a 66-year-old male with a history of palpitations, longstanding history PV Cs who had an outside echocardiogram as an outpatient, which showed an EF of 40% to 45%. The patient followed up with us in the office and had an outpatient stress test which was grossly abnormal showi ng an infixed inferior wall defect with an EF of 28%. Given these variable results, we decided to mo ve forward with a left heart catheterization to define the patient's anatomy. DESCRIPTION OF PROCEDURE: After informed consent, the patient was brought to [facility] where the right kristi in was prepped and draped in the usual sterile fashion. Using Lidocaine, a short 6-Bangladeshi sheath was introduced into the left common femoral artery and verified angiographically. With the 6-Bangladeshi she ath, the JR4 catheter was then placed in the left femoral artery. Images left coronary artery reveale d long left main. Left circumflex artery gave off a marginal 1 artery which turned into the AV groov e circ. The distal circ bifurcated into 2 marginal arteries, which were healthy and free of disease. The LAD was a long vessel which wrapped around the apex and gave off a medium to large diagonal art josé luis proximally and the 2nd diagonal artery in its mid body. Of note, the 1st diagonal artery had tub ular 50% to 60% proximal stenosis. Distally, the vessel appeared to be widely patent. After the ty ge was obtained, the JL4 catheter was removed with an 0.035 wire. JR4 catheter was advanced in the r ight coronary artery. Image of the right coronary artery revealed normal os proximal and distal RCA. The RPD and RPLS appeared to be healthy and free of disease. A JR4 catheter was removed. A pigtail catheter was advanced to the left ventricle. EDP is 18 mmHg. Left ventriculogram in the PERLA projection showed an EF of what appeared to be 40% to 45% with infero apical hypokinesis. An BRUNEIAN ventriculogram was obtained as well which showed apical hypokinesis with the same EF of approximately 40% to 45%. There was no pull-back gradient between the LV and the aort a. Pigtail was removed with an 0.035 wire. Right groin was closed with manual pressure. Patient to lerated the procedure well, with no complications. IMPRESSION: 1. Moderate proximal stenosis of a medium to large diagonal artery approximately 60%. 2. Normal left anterior descending left circumflex and right coronary arteries. 3. Reduced ejection fraction of 40% to 45% with inferolateral apical hypokinesis. PLAN: The patient's myopathy appears to be out of proportion to his coronary artery disease. He has a longstanding history of frequent PVCs, potentially refer for EP study/PVC ablation would be the ne xt logical step if the patient should have any increasing symptoms. If the patient's blood pressure can tolerate it, starting on a low-dose LUCY inhibitor for his myopathy would be suggested as an outpa tient. Beta ravi most likely cannot be initiated at this point, given the patient's baseline hear t rate in the 40s and 50s. /[id number]/MODL
== END 2017-04-30 13:03 | disposition home or self-care (01) ==
LOC: FCATH 07:44
PROVIDERS: ATTEND Internal Medicine Cardiovascular Disease
PROC: 4A023N7 Measurement of Cardiac Sampling and Pressure, Left Heart, Percutaneous Approach (ICD-10-PCS; principal; 2017-04-30)
DX: R94.39 Abnormal result of other cardiovascular function study (principal); I25.119 Atherosclerotic heart disease of native coronary artery with unspecified angina pectoris
CPT/HCPCS: J1644; J2250; J3010; Q9967

== ENCOUNTER → 2017-05-20 | Outpatient (CLI) | payer OTHER ==
[~2017-05-20] MED LIST: GADOBUTROL 10 ML VIAL IVP ONE
== END ==
LOC: FIMAGING 14:21
PROVIDERS: ATTEND Internal Medicine Cardiovascular Disease
DX: I49.3 Ventricular premature depolarization (principal); I42.0 Dilated cardiomyopathy
CPT/HCPCS: A9585

== ENCOUNTER 2017-05-21 07:08 | Observation (INO) | payer OTHER ==
[2017-05-21] MEDS ORDERED: NS 1,000 ML IV ONE (07:09)
--- NOTE | 2017-05-21 07:28 | CPEKG ---
Heart Rate: 67 RR Interval: 896 P-R Interval: 164 QRSD Interval: 106 QT Interval: 476 QTC Interval: 503 P [place]: 60 QRS [place]: -33 T Wave [place]: 83 EKG Severity - ABNORMAL ECG - EKG Impression: SINUS BRADYCARDIA EKG Impression: MULTIFORM VENTRICULAR PREMATURE COMPLEXES EKG Impression: BORDERLINE IVCD WITH LAD Electronically Signed By: Bala Delgado 21-May-2017 15:38:44
[2017-05-21 07:42] LABS: % IMMATURE GRANULYOCYTES 0.2 % (0.0-1.1); ABSOLUTE IMMATURE GRANULOCYTES 0.01 10^3/uL (0.00-0.10); ADD DIFF? NO; ADD MORPH? NO; ADD SCAN? NO; ATYPICAL LYMPHOCYTE FLAG 10 (0-99); FRAGMENT RBC FLAG 0 (0-99); HEMATOCRIT 45.4 % (40.0-51.0); HEMOGLOBIN 16.8 g/dL (13.7-17.5); LEFT SHIFT FLG 0 (0-99); LIPEMIA HEMOLYSIS FLAG 90 (0-99); MEAN CELL HEMOGLOBIN 32.7 pg (27.9-34.1); MEAN CELL VOLUME 88.5 fL (81.5-99.8); MEAN PLATELET VOLUME 9.8 fL (8.7-11.7); PLATELET CLUMPS FLAG 0 (0-99); PLATELET COUNT 184 10^3/uL (150-400); RED BLOOD CELL COUNT 5.13 10^6/uL (4.40-6.38); RED CELL DISTRIBUTION WIDTH 12.6 % (11.5-15.2)
[2017-05-21] MEDS ORDERED: ISOPROTERENOL HCL/D5W 0.2 MG/50 ML BAG IV ONE (07:48)
[2017-05-21] MEDS ORDERED: HEPARIN 10,000 UNIT/10 ML MDV ONE ×2 (07:48→11:03)
[2017-05-21] MEDS ORDERED: LIDOCAINE 1% 300 MG/30 ML SDV ONE (07:48)
[2017-05-21] MEDS ORDERED: BUPIVACAINE 0.5% 30 ML SDV ONE (07:49)
[2017-05-21 07:50] LABS: INR 1.04 (0.83-1.16); PROTIME(PATIENT) 13.5 SEC (12.0-15.0)
[2017-05-21 07:51] LABS: APTT 27.3 SEC (23.0-38.0)
[2017-05-21 08:00] LABS: ANION GAP 13 mEq/L (8-16); CALCIUM 9.4 mg/dL (8.5-10.4); CARBON DIOXIDE 23 mEq/l (22-31); CHLORIDE 106 mEq/L (97-110); GLOMERULAR FILTRATION RATE > 60; GLUCOSE 80 mg/dL (70-100); POTASSIUM 3.9 mEq/L (3.5-5.2); SODIUM 142 mEq/L (134-144)
[2017-05-21] MEDS ORDERED: MIDAZOLAM 2 MG/2 ML VIAL IVP ONE (08:15)
--- NOTE | 2017-05-21 08:15 | PDANEPAE ---
ANE History of Present Illness 66 yo for eps/ablation for pvc s/p cva w/o residual ANE Past Medical History - Cardiovascular History Hx Hypertension: No Hx Arrhythmias: Yes Hx Chest Pain: No Hx Coronary Artery / Peripheral Vascular Disease: No Hx CHF / Valvular Disease: No - Pulmonary History Hx COPD: No Hx Oxygen in Use at Home: No Hx Sleep Apnea: No - Endocrine History Hx Diabetes: No - Chronic Pain History Chronic Pain: No ANE Review of Systems Review of Systems: - Exercise capacity METS (RN): 4 METS ANE Patient History - Allergies Allergies/Adverse Reactions: No Known Allergies Allergy (Verified 04/02/17 17:36) - Home Medications Home medications: home medication list seen and reviewed - NPO status NPO Status: no food or drink >8 hours - Anes Hx Anes Hx: no prior problems - Smoking Hx Smoking Status: Never smoked ANE Labs/Vital Signs - Labs Result Diagrams: 05/21/17 07:30 05/21/17 07:30 - Vital Signs Height: 6 ft 2.02 in Weight: 81.6 kg ANE Physical Exam - Airway Neck exam: FROM Mallampati Score: Class 2 Mouth exam: normal dental/mouth exam - Pulmonary Pulmonary: no respiratory distress - Cardiovascular Cardiovascular: regular rate and rhythym - ASA Status ASA Status: II ANE Anesthesia Plan Anesthesia Plan: general endotracheal anesthesia
[2017-05-21] MEDS ORDERED: IOPAMIDOL (ISOVUE-300) 100 ML BTL ONE (08:18)
[2017-05-21] MEDS ORDERED: HEPARIN/DEXTROSE 25,000 UNIT/500 ML BAG ONE (08:20)
[2017-05-21] MEDS ORDERED: PROPOFOL/EMULSION 500 MG/50 ML BOTTLE IV ONE ×2 (08:43→10:59)
[2017-05-21] MEDS ORDERED: REMIFENTANIL HCL 1 MG VIAL ONE ×2 (08:43→10:59)
[2017-05-21] MEDS ORDERED: fentaNYL 100 MCG/2 ML INJ ONE (08:43)
--- NOTE | 2017-05-21 08:57 | PDHPUP ---
History & Physical Update H&P update statement: This history and physical update is based on an assessment of the patient which was completed after admission or registration (within 24 hours), but prior to the surgery/procedure. H&P update: H&P reviewed & patient examined, no change in patient's condition since H&P completed
[2017-05-21] MEDS ORDERED: PROTAMINE SULFATE 50 MG/5 ML VIAL IVP ONE (12:48)
--- NOTE | 2017-05-21 13:06 | POSTANESTH ---
Post Anesthetic Evaluation Cardiovascular Status: Normal, Stable Respiratory Status: Normal, Stable Level of Consciousness/Mental Status: Can Participate in Eval Pain Control: Adequate, Prn Tx Ordered Nausea/Vomiting Control: Adequate, Prn Tx Ordered Complications Possibly Related to Anesthesia: None Noted
[2017-05-21] MEDS ORDERED: ATROPINE SULFATE 1 MG/10 ML SYR ONE (13:16)
[2017-05-21] MEDS ORDERED: ACETAMINOPHEN 325 MG TAB PO PRN (16:53)
--- NOTE | 2017-05-21 17:08 | CPEKG ---
Heart Rate: 84 RR Interval: 714 QRSD Interval: 154 QT Interval: 456 QTC Interval: 540 QRS [place]: -61 T Wave [place]: 102 EKG Severity - ABNORMAL ECG - EKG Impression: Idioventricular rhythm Electronically Signed By: Gabe Olmedo 22-May-2017 11:12:38
--- NOTE | 2017-05-21 17:09 | EPPROC ---
Electrophysiology Procedure Note: ELECTROPHYSIOLOGIC STUDY AND CATHETER MEDIATED ABLATION OF PREMATURE VENTRICULAR BEATS ORIGINATING AT THE BASAL INFEROLATERAL LEFT VENTRICLE Procedures performed: 47325-66 EP evaluation with RA/RV/LA pace/record, with arrhythmia induction Left ventriculography 55331-07 EP evaluation with RA/RV pace record, insert/reposition catheter, with arrhythmia induction 66821 Intracardiac catheter ablation, VT arrhythmogenic focus Fluoroscopy INDICATION: Cardiomyopathy High PVC burden The patient arrived in the Electrophysiology Laboratory in the fasting state. The right clavicular region, right groin, and left groin area were prepped and draped in the usual sterile manner. Appropriate non-invasive blood pressure, pulse oximetry and end-tidal CO2 monitoring was established. Anesthesiologist Dr. Buenrostro administered general anesthesia. All catheters were placed percutaneously using the modified Seldinger technique , and advanced into position under fluoroscopic guidance. One #7 Maldivian deflectable octapolar electrode catheter was advanced to the His-bundle position via the R femoral vein . One #7 Maldivian deflectable catheter with 10 pairs of electrodes was placed via the right femoral vein into the distal coronary sinus AIV junction. One #4 [place]ian sheath was placed into the left femoral artery and was used for continuous arterial blood pressure monitoring and intermittent arterial blood gas determination. This was later changed to a 8 Fr sheath for retrograde aortic access. Heparin was administered to keep ACT > 250 seconds. Programmed stimulation was performed from the right atrium, right ventricle and CS (left atrium). Parahisian pacing demonstrated all retrograde conduction over the AV node. The patient arrived to the electrophysiology laboratory in normal sinus rhythm with frequent PVC. Programmed stimulation using standard protocol did not induce any sustained VT. LV gram was done via retroaortic approach in PERLA and DIVEHI views. LVEF 40-45%, basal inferior hypokinesis. PVC frequency increased with phenylephrine bolus. Dominant PVC morphology (#1) was RBBB superior axis. V1-V6 positive. QRS duration during PVC 130 ms. A 3.5 mm [employer] STSF ablation catheter with a magnetic sensor for the Carto 3D electroanatomic mapping system was used for mapping. Mapping (during PVC) of the LV showed earliest activation at the basal inferolateral area just below the mitral valve. Fragmented potentials 65 ms before QRS were seen. RF application at this site terminated the PVCs. Further RF applications were delivered septal and lateral to this area. Post PVC#1 ablation, 2 other PVC morphology were seen after recovering the patient from anesthesia. PVC #2 similar morphology to PVC #1 but QRS duration 180 ms - likely epicardial PVC# 3 outflow tract morphology, QRS transition b.w. V2-V3, inferior axis. PVC#2 and 3 were infrequent and were not targeted for RF ablation. Patient was recovered from anesthesia and further observation continued for 30 minutes with patient fully awake. No spontaneous ventricular extra systoles of the primary pattern seen prior to ablation were induced spontaneously or with ventricular burst pacing. There was no ventricular tachycardia inducible. Rare ventricular extra systoles with different patterns were observed but these were due to catheter manipulation or mechanical contact. The catheters were removed. Protamine was administered. The patient was transferred to the cardiovascular holding area in stable condition. Vascular access sheaths were removed in the holding area. There were no apparent complications. CONCLUSIONS: 1. Premature ventricular beats originating from the basal inferolateral LV just underneath the mitral valve. 2. Successful catheter mediated ablation of the premature ventricular beats. 3. 2 other PVC morphology seen, not targeted for ablation. 4. No sustained VT inducible. 5. No apparent complications. Patient Problems: Problems Problem Status Onset Ventricular arrhythmia Acute Near syncope Acute Bradycardia Acute
[2017-05-21 17:50] LABS: ANION GAP 11 mEq/L (8-16); CALCIUM 8.9 mg/dL (8.5-10.4); CARBON DIOXIDE 21 mEq/l (22-31); CHLORIDE 105 mEq/L (97-110); CREATININE 0.9 mg/dL (0.7-1.3); GLOMERULAR FILTRATION RATE > 60; GLUCOSE 115 mg/dL (70-100); MAGNESIUM 1.6 mg/dL (1.6-2.3); POTASSIUM 4.3 mEq/L (3.5-5.2); SODIUM 137 mEq/L (134-144)
[2017-05-21] MEDS ORDERED: diphenhydrAMINE 25 MG CAP PO PRN (21:30)
[2017-05-22 04:11] LABS: % IMMATURE GRANULYOCYTES 0.2 % (0.0-1.1); ABSOLUTE IMMATURE GRANULOCYTES 0.02 10^3/uL (0.00-0.10); ADD DIFF? NO; ADD MORPH? NO; ADD SCAN? NO; ATYPICAL LYMPHOCYTE FLAG 0 (0-99); FRAGMENT RBC FLAG 0 (0-99); HEMATOCRIT 37.5 % (40.0-51.0); HEMOGLOBIN 13.4 g/dL (13.7-17.5); LEFT SHIFT FLG 0 (0-99); LIPEMIA HEMOLYSIS FLAG 90 (0-99); MEAN CELL HEMOGLOBIN CONCENTR. 35.7 g/dL (32.4-36.7); MEAN CELL VOLUME 89.5 fL (81.5-99.8); MEAN PLATELET VOLUME 10.2 fL (8.7-11.7); PLATELET CLUMPS FLAG 0 (0-99); PLATELET COUNT 159 10^3/uL (150-400); RED BLOOD CELL COUNT 4.19 10^6/uL (4.40-6.38); RED CELL DISTRIBUTION WIDTH 12.5 % (11.5-15.2)
[2017-05-22 04:19] LABS: INR 1.15 (0.83-1.16); PROTIME(PATIENT) 14.7 SEC (12.0-15.0)
[2017-05-22 04:48] LABS: ANION GAP 7 mEq/L (8-16); CALCIUM 8.6 mg/dL (8.5-10.4); CARBON DIOXIDE 23 mEq/l (22-31); CHLORIDE 106 mEq/L (97-110); CREATININE 0.9 mg/dL (0.7-1.3); GLOMERULAR FILTRATION RATE > 60; GLUCOSE 91 mg/dL (70-100); POTASSIUM 4.5 mEq/L (3.5-5.2); SODIUM 136 mEq/L (134-144)
[2017-05-22 05:32] LABS: CREATINE KINASE-MB FRACTION 6.94 ng/mL (0.00-3.19)
[2017-05-22 05:33] LABS: CK-MB INTERPRETATION POSITIVE (NEGATIVE)
--- NOTE | 2017-05-22 08:34 | CPEKG ---
Heart Rate: 46 RR Interval: 1304 P-R Interval: 156 QRSD Interval: 112 QT Interval: 492 QTC Interval: 431 P [place]: 41 QRS [place]: -10 T Wave [place]: 63 EKG Severity - ABNORMAL ECG - EKG Impression: SINUS RHYTHM EKG Impression: VENTRICULAR TRIGEMINY EKG Impression: NONSPECIFIC INTRAVENTRICULAR CONDUCTION DELAY Electronically Signed By: Gabe Olmedo 22-May-2017 11:12:17
[2017-05-22] MEDS ORDERED: ASPIRIN 81 MG CHEWABLE TAB PO SCH (09:00)
--- NOTE | 2017-05-22 09:05 | ASMTCMCOM ---
CM Note CM Note Notes: 05/22/2017 Case Management Note Reviewed chart. No Case Management d/c needs identified d/t pt age, employment status and marital status. There are no PT or OT evals ordered. Case Management d/c poc: Home independent with follow up as directed when medically stable. Case Management available if needs change. Date Signed: 05/22/2017 09:04 AM Electronically Signed By:Janae Hernandez RN
--- NOTE | 2017-05-22 09:36 | ECHO ---
[email or web address] [address] [address] Main: [phone] Fax: [email or web address] Echocardiogram Name: BELEN LACKEY MR#: [id number] Study Date: 05/22/2017 Study Time: 07:56 AM Date of : 1950 Age: 66 year(s) Height: 188 cm (74 in.) Weight: 81.19 kg (179 lb.) BSA: 2.07 m2 Gender: Male Examination: Echo Indication: post EP Image Quality: Adequate Contrast: Requested by: Gabe Olmedo BP: 134 mmHg/70 mmHg Heart Rate: Rhythm: Sinus bradycardia Indication: post EP Procedure Staff Supply Teacher: Yaquelin Treviño Physician: [place] Requesting Provider: Conclusions: The ejection fraction is estimated to be 30 %. No pericardial effusion. Dilated left ventricular cavity. Reduced LV systolic function ejection fraction 30%. Global hypokinesis. Moderate mitral regurgitation. RVSP 28 mm of mercury. Measurements: Chambers Valvular Assessment AV/MV Valvular Assessment TV/PV Normal Normal Normal Name Value Range Name Value Range Name Value Range Ao Ximena (MM): 2.9 cm (2.2 cm-3.7 AV Vmax: 1.24 m/s (1 m/s-1.7 TR Vmax: 2.42 mm/s ( - ) cm) m/s) TR PGmax: 23 mmHg ( - ) IVSd (2D): 1.1 cm (0.6 cm-1.1 AV maxP mmHg ( - ) syst. PAP: 28 mmHg ( - ) cm) LVOT Vmax: 1.01 m/s (0.7 m/s-1.1 PV Vmax: 0.66 m/s (0.6 m/s-0.9 LVDd (2D): 6.5 cm (4.2 cm-5.9 m/s) m/s) cm) ELOY (Vmax): 3.4 cm2 ( - ) PV PGmax: 2 mmHg ( - ) LVDs (2D): 5.6 cm (2.1 cm-4 MV E Vmax: 0.65 m/s ( - ) cm) MV A Vmax: 0.45 m/s ( - ) LVPWd (2D): 1.0 cm (0.6 cm-1 MV E/A: 1.44 ( - ) cm) LVOTd 2.3 cm 2.3 cm mm LVEF (BP): 32 % (>=55 %) EF Range: 30 % RVDd(2D): 4.6 cm (1.9 cm-3.8 cmmm) Continued Measurements: Chambers Valvular Assessment AV/MV Valvular Assessment TV/PV Name Value Name Value Name Value LADs: 5.2 cm MV DecTime: 275 m/s CVP (est.): 5 mmHg LADs Lon.1 cm MV E' Septal: 0.06 m/s Patient: BELEN LACKEY Study Date: 05/22/2017 Page 1 of 2 07:56 AM LA Area: 33.4 cm2 MV E/E' Septal: 11.70 LA Volume: 134 ml MV E/E' Lateral: 14.10 LA Volume Index: 64.7 ml/m2 MR Vena Contracta: 0.7 cm TAPSE: 1.8 cm MR ERO: 0.240 cm2 RA Area: 27.2 cm2 MR PISA radius: 7 mm MR Reg. Volume: 53 ml Additional Vessels Name Value Ao Ascendin.3 cm Findings: Left Ventricle: Moderately dilated left ventricle. Borderline concentric LV hypertrophy. Moderately to severely reduced systolic function. The ejection fraction is estimated to be 30 %. Global hypokinesis. Normal diastolic LV function. Right Ventricle: Moderately dilated right ventricle. Mildly reduced RV function. Left Atrium: The left atrium is severely dilated. Right Atrium: The right atrium is moderately to severely dilated. Mitral Valve: There is moderate thickening of the mitral valve leaflets. Mild to moderate mitral regurgitation. No mitral stenosis is present. Aortic Valve: The aortic valve is tri-leaflet. No aortic valve stenosis is present. Trivial aortic valve regurgitation. Tricuspid Valve: The tricuspid valve appears normal. Mild tricuspid regurgitation is present. Right ventricular systolic pressure measures 28mmHg. The pulmonary artery pressure is normal. Pulmonic Valve: The pulmonic valve is normal in appearance and function. Trivial pulmonic valve regurgitation. Aorta: Normal size aortic root measuring 2.9 cm. Normal size ascending aorta measuring 3.3 cm. IVC: The IVC is dilated. No foreign body in inferior vena cava. There is inspiratory collapse of the IVC. Pericardium: No pericardial effusion. (No Signature Object) Patient: BELEN LACKEY Study Date: 05/22/2017 Page 2 of 2 07:56 AM [id number]
[2017-05-22] MEDS ORDERED: FUROSEMIDE 20 MG TAB PO ONE (09:46)
[2017-05-22] MEDS: LISINOPRIL 2.5 MG TAB PO SCH (10:04)
--- NOTE | 2017-05-22 10:31 | SOAPPROG ---
SOAP Progress Note Assessment/Plan: Assessment: h/o nonischemic CM . Non obstructive disease of diagonal on recent cath. He has h/o high PVC burden with 3 different PVCs. Had PVC ablation yesterday of primary PVC. Continues to have PVCs of different foci but <10% PVC burden noted on telemetry. No PVCs that were ablated have been seen. EF has decreased today to 30% from 40%. He does not have any symptoms or evidence of volume overload on exam. Groin sites are without hematoma or bleeding. Plan: 1. Check BNP as well as mg as it was <2 yesterday. 2. Lasix 20mg po. 3. Start lisinopril 2.5mg daily. 4. Eliquis 5 mg BID x 1 month post ablation. Start tonight. 05/22/17 10:26 Subjective: Feels well. No complaints. Objective: Vital Signs Temp Pulse Resp BP Pulse Ox 36.8 C 46 L 16 134/70 H 98 05/22/17 07:33 05/22/17 07:33 05/22/17 07:33 05/22/17 07:33 05/22/17 07:33 Laboratory Results 05/22/17 03:38 05/22/17 03:38 05/21/17 05/22/17 05/23/17 05:59 05:59 05:59 Intake Total 2200 Balance 2200 PT 14.7 SEC (12.0-15.0) 05/22/17 03:38 INR 1.15 (0.83-1.16) 05/22/17 03:38 - Time Spent With Patient Time Spent With Patient: 20min - Pending Discharge Pending Discharge Within 48 Hours: Yes Pending Discharge Date: 05/24/17 Pending Discharge Time: 11:00 Physical Exam - Physical Exam General Appearance: WD/WN, alert, no apparent distress Respiratory: lungs clear, normal breath sounds Cardiac/Chest: bradycardia, No regular rate, rhythm, No edema, No JVD, No diastolic murmur, No systolic murmur, No friction rub Abdomen: normal bowel sounds, non-tender, soft Skin: normal color, warm/dry Extremities: other (Groin sites without bleeding or hematoma), No pedal edema Neuro/Psych: normal mood/affect, oriented x 3 ICD10 Worksheet Patient Problems: Problems Problem Status Onset Ventricular arrhythmia Acute Bradycardia Acute Near syncope Acute
[2017-05-22 11:14] LABS: MAGNESIUM 1.9 mg/dL (1.6-2.3)
[2017-05-22] MEDS: APIXABAN 5 MG TAB PO SCH (20:29)
--- NOTE | 2017-05-23 02:14 | CPEKG ---
Heart Rate: 48 RR Interval: 1250 P-R Interval: 153 QRSD Interval: 104 QT Interval: 488 QTC Interval: 436 P [place]: 72 QRS [place]: -28 T Wave [place]: 118 EKG Severity - ABNORMAL ECG - EKG Impression: SINUS BRADYCARDIA EKG Impression: VENTRICULAR PREMATURE COMPLEX EKG Impression: NONSPECIFIC T ABNORMALITIES, LATERAL LEADS Electronically Signed By: Gabe Olmedo 23-May-2017 09:22:51
[2017-05-23 03:33] LABS: ALANINE AMINOTRANSFERASE 32 IU/L (21-72); ALBUMIN 3.2 g/dL (3.5-5.0); ALKALINE PHOSPHATASE 51 IU/L (38-126); ANION GAP 10 mEq/L (8-16); ASPARTATE AMINOTRANSFERASE 31 IU/L (17-59); BILIRUBIN,TOTAL 0.5 mg/dL (0.1-1.4); CALCIUM 8.8 mg/dL (8.5-10.4); CARBON DIOXIDE 23 mEq/l (22-31); CHLORIDE 107 mEq/L (97-110); CREATININE 0.9 mg/dL (0.7-1.3); GLOMERULAR FILTRATION RATE > 60; GLUCOSE 77 mg/dL (70-100); POTASSIUM 4.3 mEq/L (3.5-5.2); SODIUM 140 mEq/L (134-144); TOTAL PROTEIN 5.3 g/dL (6.3-8.2)
[2017-05-23 05:57] VITALS: RESP 12
[2017-05-23 07:26] VITALS: BP 122/79; PULSE 47; TEMP 97.8; O2SAT 98
[2017-05-23] MEDS: APIXABAN 5 MG TAB PO SCH (08:18)
[2017-05-23] MEDS: LISINOPRIL 2.5 MG TAB PO SCH (08:18)
--- NOTE | 2017-05-23 11:36 | ASDISCHSUM ---
Discharge Information Plan Status:Home with No Needs Medically Cleared to Leave:05/22/2017 Discharge Date:05/23/2017 11:11 AM CM D/C Disposition: ADT D/C Disposition:Home, Routine, Self-Care Projected Discharge Date:05/23/2017 12:00 AM Transportation at D/C: Discharge Delay Reason: Follow-Up Date:05/23/2017 12:00 AM Discharge Slot: Final Diagnosis: Placement Information Patient Contact Information Contact Name:CLAIR Relationship: Address:[address] Work Phone: City:[place] Alternate Phone: [facility]/Zip Code:[place] [address] Email: Financial Information Financial Class:HMO and PPO Plans Primary Plan Desc:[employer] PPO Primary Plan Number:[id number] Secondary Plan Desc: Secondary Plan Number: Assessment Information [facility] CM Progress Note CM Note CM Note Notes: 05/22/2017 Case Management Note Reviewed chart. No Case Management d/c needs identified d/t pt age, employment status and marital status. There are no PT or OT evals ordered. Case Management d/c poc: Home independent with follow up as directed when medically stable. Case Management available if needs change. Date Signed: 05/22/2017 09:04 AM Electronically Signed By:Janae Hernandez RN Intervention Information
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
== END 2017-05-23 11:11 | disposition home or self-care (01) ==
LOC: FCATH 07:08 → F2W 15:44
PROVIDERS: ADMIT Internal Medicine Cardiovascular Disease; ATTEND Internal Medicine Cardiovascular Disease
PROC: 4A023FZ Measurement of Cardiac Rhythm, Percutaneous Approach (ICD-10-PCS; principal; 2017-05-21)
PROC: 02583ZZ Destruction of Conduction Mechanism, Percutaneous Approach (ICD-10-PCS; principal; 2017-05-21)
PROC: 3E053KZ Introduction of Other Diagnostic Substance into Peripheral Artery, Percutaneous Approach (ICD-10-PCS; principal; 2017-05-21)
DX: I49.3 Ventricular premature depolarization (principal); I25.10 Atherosclerotic heart disease of native coronary artery without angina pectoris; I42.9 Cardiomyopathy, unspecified; Z86.73 Personal history of transient ischemic attack (TIA), and cerebral infarction without residual deficits
CPT/HCPCS: 93005; 93306; 93312; 93621; 93623; 93654; G0378; C1731; C1732; J0461; J1644; J2250; J2704; J2720; J3010; Q9967